=== PATIENT | female | born 1960 | race Caucasian/White ===

== ENCOUNTER → 2018-05-24 | Outpatient (CLI) | payer OTHER | LOC: BMCIMAGING 12:36 | PROVIDERS: ATTEND Physician Assistant Medical | DX: R51 Headache (principal) ==

== ENCOUNTER → 2018-08-24 | Outpatient (CLI) | payer OTHER | LOC: BMCIMAGING 14:25 ==

== ENCOUNTER → 2018-08-29 | Outpatient (CLI) | payer OTHER | LOC: CIMAGING 09:14 ==

== ENCOUNTER 2018-09-01 09:59 | Day surgery (SDC) | payer OTHER | END 2018-09-01 13:40 | disposition home or self-care, planned readmission (81) | LOC: FSGY 09:59 ==